=== PATIENT | male | born 2000 | race Caucasian/White ===

== ENCOUNTER 2018-12-02 11:28 | Emergency (ER) | payer MEDICAID ==
[2018-12-02] MEDS ORDERED: Bacitracin Oint 1 GM U/D Packet TOP ONE (12:03)
--- NOTE | 2018-12-02 12:05 | EDM.PDOC ---
ED HPI GENERAL MEDICAL PROBLEM - General Stated Complaint: LACERATION ON RT THUMB Time Seen by Provider: 12/02/18 12:03 Source of Information: Reports: Patient, Family History Limitations: Reports: No Limitations - History of Present Illness INITIAL COMMENTS - FREE TEXT/NARRATIVE: 17-year-old male sustaining a laceration on his right thumb. It occurred less than one hour prior to coming in the emergency room. No other injury. Onset: Sudden Duration: Minutes: (30 minutes) Location: Reports: Upper Extremity, Right Associated Symptoms: Reports: No Other Symptoms - Related Data Allergies Allergy/AdvReac Type Severity Reaction Status Date / Time No Known Allergies Allergy Verified 12/02/18 12:24 Home Meds: Home Meds NK [No Known Home Meds] 12/02/18 [History] ED ROS GENERAL - Review of Systems Review Of Systems: See Below Constitutional: Denies: Fever Respiratory: Reports: No Symptoms Neurological: Reports: No Symptoms. Denies: Paresthesia ED EXAM, SKIN/RASH Exam: See Below Exam Limited By: No Limitations General Appearance: Alert, No Apparent Distress Respiratory/Chest: No Respiratory Distress Extremities: Other (Exam is otherwise limited to the right hand. Patient has a 3 cm transverse laceration to the pulp of the right thumb, distal to the IP joint. Full range of motion, no distal paresthesia.) Neurological: Alert, Oriented Course - Vital Signs Last Recorded V/S: Last Vital Signs Temp 94.7 F L 12/02/18 12:28 Pulse 59 L 12/02/18 12:28 Resp 19 12/02/18 12:28 BP 126/53 L 12/02/18 12:28 Pulse Ox 96 12/02/18 12:28 - Orders/Labs/Meds Meds: Medications Discontinued Medications Generic Name Dose Route Start Last Admin Trade Name Freq PRN Reason Stop Dose Admin Bacitracin 1 dose 12/02/18 12:03 12/02/18 12:40 Bacitracin Oint 1 Gm TOP 12/02/18 12:04 1 dose ONETIME ONE Administration Lidocaine HCl 5 ml 12/02/18 12:03 12/02/18 12:40 Xylocaine-Mpf 1% INJECT 12/02/18 12:04 5 ml ONETIME ONE Administration - Re-Assessments/Exams Free Text/Narrative Re-Assessment/Exam: 12/02/18 12:48 The wound was anesthetized with 1% lidocaine, cleansed thoroughly with saline and Hibiclens and 4 4-0 Ethilon sutures were used to close the wound. Topical bacitracin and a Band-Aid were applied, stitches can be removed in 8 days. Departure - Departure Time of Disposition: 12:57 Disposition: Home, Self-Care 01 Condition: Good Clinical Impression: Laceration of thumb Qualifiers: Encounter type: initial encounter Damage to nail status: without damage Foreign body presence: without foreign body Laterality: right Qualified Code(s) : S61.011A - Laceration without foreign body of right thumb without damage to nail, initial encounter - Discharge Information Instructions: Laceration Care, Adult Referrals: PCP,None [Primary Care Provider] - Forms: ED Department Discharge Care Plan Goals: Keep wound covered and clean while healing, sutures can be removed in 8 days and recheck sooner if concerns of infection or not healing satisfactorily.
== END 2018-12-02 12:58 | disposition home or self-care (01) ==
LOC: JP.ED 11:28
DX: S61.011A Laceration without foreign body of right thumb without damage to nail, initial encounter (principal); W26.8XXA Contact with other sharp object(s), not elsewhere classified, initial encounter
CPT/HCPCS: 12002; 99282; J2001